=== PATIENT | male | born 1950 | race Caucasian/White ===

== ENCOUNTER 2022-02-27 10:50 | Outpatient (CLI) | payer MEDICARE | END 2022-02-27 10:51 | disposition home or self-care (01) | LOC: CSHULT 10:50 | PROVIDERS: ATTEND Internal Medicine Gastroenterology | DX: R16.0 Hepatomegaly, not elsewhere classified (principal); Z86.010 Personal history of colon polyps; Z68.37 Body mass index [BMI] 37.0-37.9, adult; K76.0 Fatty (change of) liver, not elsewhere classified; N28.1 Cyst of kidney, acquired | CPT/HCPCS: 76705 ==

== ENCOUNTER 2022-11-21 07:38 | Outpatient (CLI) | payer MEDICARE ==
[2022-11-21] MEDS ORDERED: Iopamidol 300 61% 100 ML VIAL FS ONE (12:07)
== END 2022-11-21 07:39 | disposition home or self-care (01) ==
LOC: CSHCT 07:38
PROVIDERS: ATTEND Internal Medicine Gastroenterology
DX: K75.81 Nonalcoholic steatohepatitis (NASH) (principal); Z68.37 Body mass index [BMI] 37.0-37.9, adult; Z86.010 Personal history of colon polyps; R16.0 Hepatomegaly, not elsewhere classified; N28.9 Disorder of kidney and ureter, unspecified; Q26.8 Other congenital malformations of great veins
CPT/HCPCS: 74177; 82565; Q9967